=== PATIENT | female | born 1950 | race Caucasian/White ===

== ENCOUNTER 2016-05-29 23:56 | Emergency (ER) | payer BC ==
[2016-05-30] MEDS ORDERED: SODIUM CHLORIDE 0.9% 1,000 ML ONE (00:48)
[2016-05-30 00:49] LABS: ABSOLUTE NEUTROPHIL COUNT 4.6 K/mm3 (1.8-7.7); BASO # 0.1 K/mm3 (0.0-0.2); BASO % 0.5 % (0.2-1.0); EOS # 0.2 (0.0-0.5); EOS % 2.3 % (0.9-2.9); HEMATOCRIT 44.3 % (37.0-47.0); HEMOGLOBIN 14.3 gm/l (12.0-16.0); IMM NEUT% 0.4 % (0-1); LYMPH % 41.4 % (15-45); MEAN CELL VOLUME 91.9 fl (81.0-99.0); MEAN CORPUSCULAR HEMOGLOBIN 29.7 pg (27.0-31.0); MEAN CORPUSCULAR HGB CONC 32.3 g/dl (33.0-37.0); MEAN PLATELET VOLUME 9.6 fl (7.4-10.4); MONO # 0.8 (0.0-0.8); MONO % 7.8 % (4-12); NEUT % 47.6 % (43-75); PLATELET COUNT 346 K/mm3 (130-400); RED CELL DISTRIBUTION WIDTH 12.5 % (11.5-14.5)
[2016-05-30 01:02] LABS: ALB/GLOB RATIO 1.5 (>1.0); CALCIUM 9.8 mg/dL (8.6-10.3)
[2016-05-30 01:05] LABS: TROPONIN I < 0.01 ng/ml (0.0-0.06)
[2016-05-30 01:17] LABS: THYROID STIMULATING HORMONE 10.68 uIU/ml (0.34-5.60)
== END 2016-05-30 02:44 | disposition home or self-care (01) ==
LOC: ED 23:56
DX: R00.0 Tachycardia, unspecified (principal); R94.6 Abnormal results of thyroid function studies; R06.02 Shortness of breath
CPT/HCPCS: 85379; 85025; 80053; 84443; 84484; 99284 ×2; 96360; 96361; 93005; J7030